=== PATIENT | female | born 2000 ===

== ENCOUNTER 2022-07-27 18:01 | Outpatient (CLI) | payer OTHER ==
[~2022-07-27] VITALS: Ht 157.5 cm; Wt 89.9 kg
[2022-07-27] MEDS ORDERED: PRENTAB9 PO (18:17)
[2022-07-27 18:20] VITALS: BP 129/72
[2022-07-27] MEDS ORDERED: HOME MED LIST COMPLETE! XX SCH (18:20)
[2022-07-27 18:48] VITALS: BP 130/79
[2022-07-27 19:31] LABS: HEMATOCRIT 37.4 % (36.0-47.0); HEMOGLOBIN 12.1 g/dl (12.0-15.5); MEAN CORPUSCULAR HEMOGLOBIN 31.9 pg (27.0-33.0); MEAN CORPUSCULAR HGB CONC 32.4 g/dl (32.0-36.5); MEAN CORPUSCULAR VOLUME 98.7 fl (80.0-96.0); PLATELET COUNT, AUTOMATED 217 10^3/uL (150-450); RED BLOOD COUNT 3.79 10^6/uL (4.00-5.40); WHITE BLOOD COUNT 10.8 10^3/uL (4.0-10.0)
[2022-07-27 19:33] VITALS: BP 126/75
[2022-07-27 19:55] LABS: CREATININE,RANDOM URINE 39.6 MG/DL; TOTAL PROTEIN,RANDOM URINE 7.4 MG/DL (0.0-12.0)
[2022-07-27 19:56] LABS: ALT/SGPT 63 U/L (12-78); BILIRUBIN,TOTAL 0.4 MG/DL (0.2-1.0); CREATININE FOR GFR 0.72 MG/DL (0.55-1.30); GLOMERULAR FILTRATION RATE > 60.0 (>60); LDH LACTATE DEHYDROGENASE 218 U/L (84-246); URIC ACID 3.9 MG/DL (2.6-6.0)
== END 2022-07-27 20:13 | disposition home or self-care (01) ==
LOC: M LDO 18:01
PROVIDERS: ATTEND Obstetrics & Gynecology
DX: O26.893 Other specified pregnancy related conditions, third trimester (principal); R42 Dizziness and giddiness; Z3A.38 38 weeks gestation of pregnancy
CPT/HCPCS: 36415; 59025; 82247; 82565; 82570; 83615; 84156; 84450; 84460; 84550; 85027; G0463

== ENCOUNTER 2022-08-07 10:06 | Inpatient (IN) | payer OTHER ==
[~2022-08-07] VITALS: Ht 157.5 cm; Wt 91.2 kg
[2022-08-07] VITALS (7 sets, daily range): BP systolic 117–147; BP diastolic 61–85
[~2022-08-07 10:06] MED LIST: PRENTAB9 PO
[2022-08-07] MEDS ORDERED: HOME MED LIST COMPLETE! XX SCH (10:40)
[2022-08-07] MEDS ORDERED: LACTATED RINGER'S 1000 ML IV STA (11:01)
[2022-08-07] MEDS ORDERED: METHYLERGONOVINE MALEATE 0.2 MG/ML VIAL (J2210) IM PRN (11:05)
[2022-08-07] MEDS ORDERED: TRANEXAMIC ACID INJection 1,000 MG in NS 100 ML IV PRN (11:05)
[2022-08-07] MEDS ORDERED: CARBOPROST TROMETHAMINE 250 MCG/ML AMP IM PRN (11:05)
[2022-08-07] MEDS ORDERED: LR 1,000 ML IV SCH (11:05)
[2022-08-07] MEDS ORDERED: OXYTOCIN INJ 10 UNITS/ML VIAL (J2590) IM PRN (11:05)
[2022-08-07] MEDS ORDERED: LIDOCAINE 1% MDV 20ML VIAL INFIL PRN (11:05)
[2022-08-07] MEDS ORDERED: OXYTOCIN DRIP 30 UNITS in IV 1 EA IV PRN ×4 (11:05)
[2022-08-07 11:59] LABS: HEMATOCRIT 39.4 % (36.0-47.0); HEMOGLOBIN 12.6 g/dl (12.0-15.5); MEAN CORPUSCULAR HEMOGLOBIN 31.7 pg (27.0-33.0); MEAN CORPUSCULAR VOLUME 99.2 fl (80.0-96.0); PLATELET COUNT, AUTOMATED 208 10^3/uL (150-450); RED BLOOD COUNT 3.97 10^6/uL (4.00-5.40); WHITE BLOOD COUNT 10.8 10^3/uL (4.0-10.0)
[2022-08-07 15:28] LABS: CORD GAS ABE A -13.3; CORD GAS ABE V -11.5; CORD GAS HCO3 A 17.8 MEQ/L; CORD GAS HCO3 V 16.6 MEQ/L; CORD GAS O2 SAT A 57.5 %; CORD GAS O2 SAT V 57.4 %; CORD GAS PCO2 A 63.4 mmHg; CORD GAS PCO2 V 45.1 mmHg; CORD GAS PH A 7.065 UNITS; CORD GAS PH V 7.184 UNITS; CORD GAS PO2 A 33.8 mmHg; CORD GAS PO2 V 29.7 mmHg; CORD GAS SBC A 13.6 MEQ/L; CORD GAS SBC V 14.8 MEQ/L; CORD GAS TCO2 A 19.7 MEQ/L
[2022-08-07] MEDS ORDERED: ACETAMINOPHEN TAB 650MG DOSE (2X325MG) PO PRN (16:20)
[2022-08-07] MEDS ORDERED: ACETAMINOPHEN 500 MG TAB PO PRN (16:20)
[2022-08-07] MEDS ORDERED: IBUPROFEN 600MG TAB PO PRN (16:20)
[2022-08-07] MEDS ORDERED: OXYTOCIN DRIP 30 UNITS in IV 1 EA IV SCH (16:20)
[2022-08-07] MEDS ORDERED: METHYLERGONOVINE MALEATE 0.2 MG TAB PO PRN (16:20)
[2022-08-07] MEDS ORDERED: DIBUCAINE 1% OINTMENT 30GM TOP PRN (16:20)
[2022-08-07] MEDS ORDERED: DOCUSATE SODIUM 100MG CAPSULE PO PRN (16:20)
[2022-08-07] MEDS ORDERED: IBUPROFEN 800 MG TAB PO PRN (16:20)
[2022-08-08 06:00] VITALS: BP 113/53
[2022-08-08] MEDS: PRENATAL VITAMINS CHEWABLE TABLET PO SCH (08:08)
[2022-08-08 17:56] VITALS: BP 108/64
[2022-08-09 05:46] VITALS: BP 117/59
[2022-08-09] MEDS ORDERED: ACET1TAB55 PO (08:14)
[2022-08-09] MEDS ORDERED: IBUP-1022 PO (08:14)
[2022-08-09] MEDS: PRENATAL VITAMINS CHEWABLE TABLET PO SCH (08:20)
[2022-08-09] MEDS ORDERED: BOOSTRIX/ADACEL VACCINE (DIPHTH/PERTUSS/ACELL/TETANUS) 0.5ML SYR IM.IMMUN ONE (09:00)
== END 2022-08-09 15:45 | disposition home or self-care (01) | DRG 807 ==
LOC: M LDO 10:06 → M LDI 10:58 → M OBS 17:20
PROVIDERS: ADMIT Advanced Practice Midwife; ATTEND Advanced Practice Midwife
PROC: 10E0XZZ Delivery of Products of Conception, External Approach (ICD-10-PCS; principal; 2022-08-07)
PROC: 0KQM0ZZ Repair Perineum Muscle, Open Approach (ICD-10-PCS; 2022-08-07)
PROC: 10907ZC Drainage of Amniotic Fluid, Therapeutic from Products of Conception, Via Natural or Artificial Opening (ICD-10-PCS; 2022-08-07)
DX: O48.0 Post-term pregnancy (principal); Z37.0 Single live birth; Z3A.40 40 weeks gestation of pregnancy; O77.0 Labor and delivery complicated by meconium in amniotic fluid; O70.1 Second degree perineal laceration during delivery